=== PATIENT | male | born 1975 | race American Indian/Alaskan Native ===

== ENCOUNTER 2016-12-15 14:33 | Inpatient (IN) | payer MEDICAID ==
[2016-12-15 14:44] VITALS: BMI 20.1
[2016-12-15 14:49] VITALS: O2SAT 99
--- NOTE | 2016-12-15 16:09 | C.PDOC ---
History Of Present Illness A 41 year old male, whose past medical history includes depression, bipolar disorder, HIV, and asthma, presents to the emergency department for depression with possible suicidal ideation with a plan. The patient denies any homicidal ideation, or any other physical complaints at this time. Time Seen by Provider: 12/15/16 14:53 Chief Complaint (Nursing): Medical Clearance History Per: Patient Onset/Duration Of Symptoms: Other Past Medical History Vital Signs: Last Vital Signs Temp 98.7 F 12/15/16 14:44 Pulse 60 12/15/16 14:44 Resp 18 12/15/16 14:44 BP 101/65 12/15/16 14:44 Pulse Ox 99 12/15/16 16:10 - Medical History PMH: Asthma, Bipolar Disorder, Depression, HIV Denies: Chronic Kidney Disease - [facility] Procedures DETOXIFICATION SERVICES FOR SUBSTANCE ABUSE TREATMENT (10/11/15) [employer] FOR SUBSTANCE ABUSE TREATMENT, PSYCHOEDUCATION (10/11/15) Family History: States: Unknown Family Hx - Social History Hx Alcohol Use: Yes Hx Substance Use: Yes (crack) - Immunization History Hx Tetanus Toxoid Vaccination: No Hx Influenza Vaccination: No Hx Pneumococcal Vaccination: No Review Of Systems Except As Marked, All Systems Reviewed And Found Negative. Constitutional: Negative for: Fever Cardiovascular: Negative for: Chest Pain Respiratory: Negative for: Cough Psych: Positive for: Depression, Suicidal ideation Physical Exam - Physical Exam Appears: Well, No Acute Distress Skin: Normal Color, Warm, Dry Eye(s): bilateral: Normal Inspection, PERRL, EOMI Nose: Normal Throat: Normal Neck: Normal Cardiovascular: Rhythm Regular Respiratory: Normal Breath Sounds Gastrointestinal/Abdominal: Normal Exam Back: Normal Inspection Extremity: Normal ROM Neurological/Psych: Oriented x3, Normal Speech ED Course And Treatment O2 Sat by Pulse Oximetry: 99 Medical Decision Making Medical Decision Making: Progress Notes: -- Direct admission to Hospital Disposition - Disposition Disposition: HOSPITALIZED Disposition Time: 15:00 Condition: STABLE - Clinical Impression Clinical Impression: MDD (major depressive disorder) - Scribe Statement The provider has reviewed the documentation as recorded by the Scribe Taylor James All medical record entries made by the Scribe were at my direction and personally dictated by me. I have reviewed the chart and agree that the record accurately reflects my personal performance of the history, physical exam, medical decision making, and the department course for this patient. I have also personally directed, reviewed, and agree with the discharge instructions and disposition.
--- NOTE | 2016-12-15 16:31 | PCM.BM ---
<Jesusita Granger - Last Filed: 12/15/16 16:28> Treatment Plan Problems - Problems identified on initial assessmt depression Date Initiated: 12/15/16 Time Initiated: 15:30 Assessment reference: NA Status: Active Priority: 1 Treatment assets and liabiliti Patient Assests: cooperative, ADL independent, negotiates basic needs Patient Liabilities: live alone, substance abuse, auditory impairment - Milieu Protocol Maintain good personal hygiene: daily Encourage regular showers, daily Remind patient to perform daily oral care, daily Assist patient to perform ADL's Conduct patient checks and document Observation sheet: Q15 minutes Maintain personal safety: every shift Educate patient to report safety concerns to staff, every shift Monitor environment for contraband/sharps Medication safety: Monitor for expected outcome, potential side effects: every shift, Assess barriers to learning: every shift, Assess readiness for medication education: every shift <Camille Benitez - Last Filed: 12/17/16 10:53> Family Contact Family involvement: Famliy/SO not involved - Goals for Treatment Patient goals for treatment: "I want to go to program" Discharge/Continuing Care - Education Needs Education Needs: Patient Medication, Patient Coping Skills, Patient Placement options, Patient Community resources - Discharge Discharge Criteria: Tolerates medication w/o severe side effects, Free of Suicidal thoughts, No longer exhibiting s/s of withdrawal, Reduction of target symptoms Discharge to:: Substance Abuse Rehab - Treatment Team Participation Discussed with Family/SO: No Was Patient/Family/SO present at Treatment Team Meeting: Yes <Rachele Barlow - Last Filed: 12/17/16 10:57> - Diagnosis (1) MDD (major depressive disorder) Status: Acute Interventions: 12/17/16 10:57 * Assess/adjust medications daily and /or as needed * See patient on an individual basis 7x/week to assess level of manic behaviors and stability * Discuss risks, benefits, side effects and alternatives of medications (2) Cocaine use disorder, moderate, dependence Status: Acute Interventions: 12/17/16 10:57 * Assess 7x/week regarding severity of withdrawal * Educate regarding risks, benefits, side effects and alternatives of medications * Use Motivational Interviewing for abstinence * Use CBT for relapse prevention * Medication management for withdrawal symptoms * Encourage medication assisted treatment
[2016-12-15] MEDS ORDERED: Albuterol HFA 90 mcg/actuation (8 g) INH PRN (23:24)
--- NOTE | 2016-12-16 10:07 | PCM.PSYCH ---
Initial Psychiatric Evaluation - Initial Psychiatric Evaluation Type of Admission: Voluntary Legal Status: Capacity Chief Complaint (in patient's own words): "I feel depressed." History of Present Illness and Precipitating Events: The pt is seen, chart reviewed, case discussed with staff A 41 yo -[place]yp[place] male presents to the ED with depression and suicidal ideation. He is currently feeling depressed, but denies anxiety, visual/ auditory hallucinations, or homicidal ideation's. The patient reports being diagnosed with Bipolar Disorder and Depression in 2008, and having periods of racing thoughts and major depression ever since. The patient has attempted suicide 6 times in the past, with the most recent attempt being 4 days ago, for which he was hospitalized at [facility]. The patient has attempted suicide by overdosing on painkillers each time. The patient started seeing a psychiatrist this year and was prescribed SSRI's. The patient reports not taking the medications because he states "some days I didn't feel depressed so I didn't take medications." The patient denies any past trauma, seizures, or hallucinations. Social Hx: Lives [facility]; homeless; unemployed and receiving disability benefits; education up to 10th grade; 4 children, aged 22,19,16,and 9 ; not in touch with family; never . Past Psychiatric Hx: Dx with bipolar disorder in 2008; dx with depression in 2008; admits to 2 bottles/day ($5/bag) of cocaine, via smoking; admits to occasionally drinking alcohol and smoking marijuana; denies pcp, heroin, xanax; smokes 3 cigarettes/day. Family Hx: none Family Psychiatric Hx: Mothers sides of family are heavy drinkers. Past Medical Hx: Asthma, HIV (currently not taking any HIV medications). Current Medications: Active Medications Generic Name Dose Route Start Last Admin Trade Name Freq PRN Reason Stop Dose Admin Albuterol 1 puff 12/15/16 23:24 Ventolin Hfa 90 Mcg/Actuation (8 G) INH RQ6 PRN Shortness of Breath Benztropine Mesylate 2 mg 12/16/16 00:01 Cogentin PO Q6 PRN Extra Pyramidal Symptoms Diphenhydramine HCl 50 mg 12/16/16 00:01 Benadryl PO Q6 PRN Extra Pyramidal Symptoms Haloperidol 5 mg 12/16/16 00:01 Haldol PO Q8 PRN Moderate Agitation Haloperidol Lactate 5 mg 12/16/16 00:01 Haldol IM Q8 PRN Moderate Agitation Hydroxyzine HCl 25 mg 12/16/16 00:04 Atarax PO Q6 PRN Agitation Lorazepam 1 mg 12/16/16 00:01 Ativan PO Q6 PRN Anxiety Trazodone HCl 50 mg 12/16/16 22:00 Desyrel PO HS [facility] Past Psychiatric History - Past Psychiatric History Previous Treatment History: Inpatient Pertinent Medical Hx (Current Medical&Sleep Prob, Allergies): Allergies Allergy/AdvReac Type Severity Reaction Status Date / Time shrimp Allergy VOMITING Verified 12/15/16 14:43 Emtricitabine/Tenofovir Diso [Truvada 200 MG-300 MG] 1 tab PO DAILY 10/11/15 ARIPiprazole [Abilify] 2 mg PO DAILY 12/15/16 Acetaminophen [Tylenol 325mg tab] 2 tab PO Q6 PRN 12/15/16 Dolutegravir Sodium [Tivicay] 1 tab PO DAILY 12/15/16 Emtricitabine/Tenofovir Diso [Truvada 200 MG-300 MG] 1 tab PO DAILY 12/15/16 Ibuprofen [Motrin Tab] 1 tab PO Q8 PRN 12/15/16 Prednisone 1 tab PO DAILY 12/15/16 Sertraline [Zoloft] 1 tab PO DAILY 12/15/16 Sertraline [Zoloft] 1 tab PO DAILY 12/15/16 Review of Systems - Review of Systems All systems: reviewed and no additional remarkable complaints except - Psychiatric Psychiatric: Anxiety, Hopelessness, Irritability, Mood Swings, Suicidal Ideation Mental Status Examination - Personal Presentation Personal Presentation: Looks stated age - Affect Affect: Constricted, Depressed - Motor Activity Motor Activity: Psychomotor Retardation - Reliability in Providing Information Reliability in Providing Information: Poor, due to altered mood - Speech Speech: Organized - Mood Mood: Depressed, Anxious - Formal Thought Process Formal Thought Process: Flight of ideas - Obsessions/Compulsions Obsessions: No Compulsions: No - Cognitive Functions Orientation: Person, Place, Situation, Time Sensorium: Alert Attention/Concentration: Attentive Abstract Thinking: Marble Estimate of Intelligence: Below average Judgement: Imparied, as evidence by: Poor judgement, Imparied, as evidence by: Lack of insight into illness - Risk Risk: Suicidal, Diminished functioning - Limitations Limitations: Living alone DSM 5 DX - DSM 5 DSM 5 Diagnosis: Bipolar disorder MRE depressed severe without psychotic features Alcohol use d/o moderate - Recommended/Plan of Treatment Treatment Recommendations and Plan of Treatment: Bipolar disorder MRE depressed severe without psychotic features CBT Psychoeducation Supportive therapy, group therapy, individual therapy Neurontin 300 mg by mouth 2 times a day Trazodone 50 mg by mouth daily at bedtime Alcohol use disorder moderate CBT Psychoeducation Supportive therapy, individual therapy Use [place] for abstinence - Smoking Cessation Smoking Cessation Initiated: No
[2016-12-16] MEDS: Emtricitabine-Tenofovir 200 mg-300 mg Tab PO SCH (17:40)
[2016-12-17] MEDS: Emtricitabine-Tenofovir 200 mg-300 mg Tab PO SCH (10:46)
--- NOTE | 2016-12-17 10:58 | PCM.PYCHPN ---
Psychiatric Progress Note - Psychiatric Progress Note Patient seen today, length of contact: 16 min Patient Chief Complaint: "I feel depressed." Problems Identified/Issues Discussed: Patient seen and evaluated, chart reviewed and discussed with the nurse. Patient remained irritable and agitated. He still reports racing of thoughts and flight of ideas. He remained isolated, confined and withdrawn. He reports depressed mood and feelings of hopelessness and helplessness. He is taking medication and denies any side effects. He needs more time for stabilization. Supportive therapy and psychoeducation were given. Medication Change: Yes Medical Record Reviewed: Yes Mental Status Examination - Cognitive Function Orientation: Person, Place, Situation, Time Attention: WNL Concentration: Poor Association: WNL Fund of Knowledge: Poor - Mood Mood: Depressed, Anxious - Affect Affect: Constricted, Depressed - Speech Speech: Soft - Formal Thought Process Formal Thought Process: Flight of ideas - Suicidal Ideation Suicidal Ideation: No - Homicidal Ideation Homicidal Ideation: No Goal/Treatment Plan - Goal/Treatment Plan Need for Continued Stay: Discharge may exacerbated symptoms, Severe functional impairment Progress Toward Problem(s) and Goals/Treatment Plan: Bipolar disorder MRE depressed severe without psychotic features CBT Psychoeducation Supportive therapy, group therapy, individual therapy Neurontin 300 mg by mouth 2 times a day Trazodone 50 mg by mouth daily at bedtime Alcohol use disorder moderate CBT Psychoeducation Supportive therapy, individual therapy Use [place] for abstinence - Smoking Cessation Smoking Cessation Initiated: No
[2016-12-18] MEDS: Emtricitabine-Tenofovir 200 mg-300 mg Tab PO SCH (10:46)
--- NOTE | 2016-12-18 14:01 | PCM.PYCHPN ---
Psychiatric Progress Note - Psychiatric Progress Note Patient seen today, length of contact: 16 min Patient Chief Complaint: "I am feeling a little better.' Problems Identified/Issues Discussed: Patient seen and evaluated, chart reviewed and discussed with the nurse. Patient reports some improvement in the racing of thoughts and flight of ideas. He also reports improvement in the depressed mood and feelings of hopelessness and helplessness. He is taking medication and denies any side effects. He remained isolated, confined and withdrawn. He needs more time for stabilization. Supportive therapy and psychoeducation were given. Medication Change: Yes Medical Record Reviewed: Yes Mental Status Examination - Cognitive Function Orientation: Person, Place, Situation, Time Memory: Intact Attention: WNL Concentration: Poor Association: WNL Fund of Knowledge: Poor - Mood Mood: Depressed, Anxious - Affect Affect: Constricted, Depressed - Speech Speech: Soft - Formal Thought Process Formal Thought Process: Flight of ideas - Suicidal Ideation Suicidal Ideation: No - Homicidal Ideation Homicidal Ideation: No Goal/Treatment Plan - Goal/Treatment Plan Need for Continued Stay: Discharge may exacerbated symptoms, Severe functional impairment Progress Toward Problem(s) and Goals/Treatment Plan: Bipolar disorder MRE depressed severe without psychotic features CBT Psychoeducation Supportive therapy, group therapy, individual therapy Neurontin 300 mg by mouth 2 times a day Trazodone 50 mg by mouth daily at bedtime Alcohol use disorder moderate CBT Psychoeducation Supportive therapy, individual therapy Use [place] for abstinence - Smoking Cessation Smoking Cessation Initiated: No
--- NOTE | 2016-12-19 09:58 | PCM.PYCHPN ---
Psychiatric Progress Note - Psychiatric Progress Note Patient seen today, length of contact: 16 min Patient Chief Complaint: "I am feeling much better. " Problems Identified/Issues Discussed: Patient seen and evaluated, chart reviewed and discussed with the nurse. Staff reports pt is doing much better. Patient reports improvement in the mood and improvement in the racings. He also reports improvement in the feelings of hopelessness and helplessness. He is taking medication and denies any side effects. He needs more time for stabilization. Supportive therapy and psychoeducation were given. Medication Change: No Medical Record Reviewed: Yes Mental Status Examination - Cognitive Function Orientation: Person, Place, Situation, Time Memory: Intact Attention: WNL Concentration: WNL Association: WNL Fund of Knowledge: Poor - Mood Mood: Anxious - Affect Affect: Constricted, Depressed - Speech Speech: Soft - Formal Thought Process Formal Thought Process: No Impairment - Suicidal Ideation Suicidal Ideation: No - Homicidal Ideation Homicidal Ideation: No Goal/Treatment Plan - Goal/Treatment Plan Need for Continued Stay: Discharge may exacerbated symptoms, Severe functional impairment Progress Toward Problem(s) and Goals/Treatment Plan: Bipolar disorder MRE depressed severe without psychotic features CBT Psychoeducation Supportive therapy, group therapy, individual therapy Neurontin 300 mg by mouth 2 times a day Trazodone 50 mg by mouth daily at bedtime Alcohol use disorder moderate CBT Psychoeducation Supportive therapy, individual therapy Use [place] for abstinence - Smoking Cessation Smoking Cessation Initiated: No
[2016-12-19] MEDS: Emtricitabine-Tenofovir 200 mg-300 mg Tab PO SCH (10:27)
[2016-12-20 08:22] VITALS: BP 97/58; PULSE 68; RESP 20; TEMP 98.4
[2016-12-20] MEDS: Emtricitabine-Tenofovir 200 mg-300 mg Tab PO SCH (09:19)
--- NOTE | 2016-12-20 10:51 | PCM.PYCHDC ---
Mental Status Examination - Mental Status Examination Orientation: Person, Place, Situation, Time Memory: Intact Mood: Neutral Affect: Constricted Speech: Soft Attention: WNL Concentration: WNL Association: WNL Fund of Knowledge: WNL Formal Thought Process: No Impairment Description of patient's judgement and insight: good, fair Psychotic Thoughts and Behaviors: denies any AVH Suicidal Ideation: No Current Homicidal Ideation?: No Discharge Summary - Discharge Note Reason for Hospitalization: The pt is seen, chart reviewed, case discussed with staff A 41 yo -[place] male presents to the ED with depression and suicidal ideation. He is currently feeling depressed, but denies anxiety, visual/ auditory hallucinations, or homicidal ideation's. The patient reports being diagnosed with Bipolar Disorder and Depression in 2008, and having periods of racing thoughts and major depression ever since. The patient has attempted suicide 6 times in the past, with the most recent attempt being 4 days ago, for which he was hospitalized at [facility]. The patient has attempted suicide by overdosing on painkillers each time. The patient started seeing a psychiatrist this year and was prescribed SSRI's. The patient reports not taking the medications because he states "some days I didn't feel depressed so I didn't take medications." The patient denies any past trauma, seizures, or hallucinations. Social Hx: Lives [place]; homeless; unemployed and receiving disability benefits; education up to 10th grade; 4 children, aged 22,19,16,and 9 ; not in touch with family; never . Past Psychiatric Hx: Dx with bipolar disorder in 2008; dx with depression in 2008; admits to 2 bottles/day ($5/bag) of cocaine, via smoking; admits to occasionally drinking alcohol and smoking marijuana; denies pcp, heroin, xanax; smokes 3 cigarettes/day. Family Hx: none Family Psychiatric Hx: Mothers sides of family are heavy drinkers. Past Medical Hx: Asthma, HIV (currently not taking any HIV medications). Consultations:: List each consultation separately and include: 1. Reason for request. 2. Findings. 3. Follow-up Summary of Hospital Course include:: 1. Description of specific treatment plan utilized for patients during their course of treatmen. 2. Summarize the time- course for resolution of acute symptoms and/or regressed behaviors. 3. Describe issues identified and worked on during hospitalization. 4. Describe medication utilized. 5. Describe medical problems identified and treated. 6. Reassessment of suicide risk Summary of Hospital Course: During the course of his stay, patient (pt) started progressively improving and he no longer remained irritable, depressed, and suicidal. His mood was improved and he started attending groups and meetings and started socializing. Patient denied any feelings of hopelessness, helplessness, and worthlessness, denied any problem with the sleep or appetite, denied suicidal ideation or homicidal ideation. Pt denied any auditory or visual hallucinations. Some changes were made in his current medications and patient was discharged on following medications. He tolerated these medications very well and denied any side effects. CBT and [place] were used. - Diagnosis (1) MDD (major depressive disorder) Status: Acute (2) Cocaine use disorder, moderate, dependence Status: Acute - Final Diagnosis (DSM 5) Condition upon Discharge: STABLE DSM 5: Bipolar disorder MRE depressed severe without psychotic features Alcohol use disorder moderate Disposition: HOME/ ROUTINE Follow-up Treatment Plan: Education: Pt was educated and counseled about the risks and benefits of taking and not taking medications. Pt was educated and counseled about the risks of drinking and abusing drugs. Pt was educated and counseled to go to the ER or call 911 if pt develop suicidal ideation or homicidal ideation, worsening of symptoms or severe side effects of the meds. Prescriptions/Medication Reconciliation: Dolutegravir Sodium [Tivicay] 50 mg PO DAILY #30 tab Emtricitabine/Tenofovir Diso [Truvada 200 MG-300 MG] 1 tab PO DAILY #30 tab Gabapentin [Neurontin] 300 mg PO BID #60 cap Sertraline [Zoloft] 50 mg PO DAILY #30 tab traZODone [Desyrel] 50 mg PO HS #30 tab - Smoking Cessation Smoking Cessation Medication prescribed: No - Antipsychotic Medications Pt discharged on 2 or more routine antipsychotic medications: No
== END 2016-12-20 11:55 | disposition home or self-care (01) | DRG 430 ==
LOC: C.ER 14:33 → C.5E 15:04
PROVIDERS: ADMIT Psychiatry & Neurology Psychiatry; ATTEND Psychiatry & Neurology Psychiatry
PROC: GZHZZZZ Group Psychotherapy (ICD-10-PCS; principal; 2016-12-15)
PROC: GZ58ZZZ Individual Psychotherapy, Cognitive-Behavioral (ICD-10-PCS; 2016-12-15)
PROC: GZ56ZZZ Individual Psychotherapy, Supportive (ICD-10-PCS; 2016-12-15)
PROC: HZ2ZZZZ Detoxification Services for Substance Abuse Treatment (ICD-10-PCS; 2016-12-15)
DX: F33.2 Major depressive disorder, recurrent severe without psychotic features (principal); R45.851 Suicidal ideations; F14.23 Cocaine dependence with withdrawal; J45.909 Unspecified asthma, uncomplicated; Z21 Asymptomatic human immunodeficiency virus [HIV] infection status; Z59.0 Homelessness; F17.210 Nicotine dependence, cigarettes, uncomplicated; F10.10 Alcohol abuse, uncomplicated